=== PATIENT | male | born 1965 | race Caucasian/White ===

== ENCOUNTER 2017-05-11 08:55 | Inpatient (IN) | payer MEDICAID ==
--- NOTE | 2017-05-11 09:11 | ED Physician Chart ---
Chief Complaint/HPI - Patient Information Date Seen:: 05/11/17 Time Seen:: 09:06 Chief Complaint:: sob History of Present Illness:: pt says onset sob last nt. no cp. has some abd bloating no fever. 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 no leg pains or edema. was in [facility] 2 days ago for similar sx. says he is compliant w meds but also is confused about freq med changes. he has known hx of afib, htn and chf. no hx DM or AK or cva. he was recent admit at [facility] and says was advised to get GB sx but in [facility] they did work up and disagreed w leilani sx advice. he does not know his current meds but brought a bag (contains toprol 50 bid and no warfarin nor digoxin in bag) pt when asked, says he is not regularly on narcotic medication. 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 Allergies:: Allergies Allergy/AdvReac Type Severity Reaction Status Date / Time No Known Allergies Allergy Verified 05/11/17 09:02 Vitals:: Vital Signs - 8 hr 05/11/17 08:55 Temp 97.9 F HR 150 RR 18 BP 116/96 O2 Sat % 100 Historian:: Patient Review of Systems - Review of Systems General/Constitutional: No fever, No chills, No weight loss, No weakness, No diaphoresis, No edema, No loss of appetite Skin: No skin lesions, No rash, No bruising Head: No headache, No light-headedness Eyes: No loss of vision, No pain, No diplopia ENT: No earache, No nasal drainage, No sore throat, No tinnitus Neck: No neck pain, No swelling, No thyromegaly, No stiffness, No mass noted Cardio Vascular: No chest pain, No palpitations, No PND, No orthopnea, No edema Pulmonary: No SOB, No cough, No sputum, No wheezing GI: No nausea, No vomiting, No diarrhea, No pain, No melena, No hematochezia, No constipation, No hematemesis G/U: No dysuria, No frequency, No hematuria Musculoskeletal: No bone or joint pain, No back pain, No muscle pain Endocrine: No polyuria, No polydipsia Psychiatric: No prior psych history, No depression, No anxiety, No suicidal ideation Hematopoietic: No bruising, No lymphadenopathy Allergic/Immuno: No urticaria, No angioedema Neurological: No syncope, No focal symptoms, No weakness, No paresthesia, No headache, No seizure, No dizziness, No confusion, No vertigo Past Medical History - Past Medical History Past Medical History: HTN, CHF, Other (a fib) Social History: Non Smoker Medication: Reviewed Family Medical History - Family Member Grandmother Hx Family Cancer: Yes Physical Exam - Physical Examination General/Constitutional: Awake, Well-developed, well-nourished, Alert, No distress, GCS 15, Non-toxic appearing, Ambulatory Other Gen/Cons comments:: alert and not seemingly worried. speaks full sentences w nonpressured speech. lungs are clear. no edema. mod obese. Head: Atraumatic Eyes: Lids, conjuctiva normal, PERRL, EOMI Skin: Nl inspection, No rash, No skin lesions, No ecchymosis, Well hydrated, No lymphadenopathy ENMT: External ears, nose nl, Nasal exam nl, Lips, teeth, gums nl Neck: Nontender, Full ROM w/o pain, No JVD, No nuchal rigidity, No bruit, No mass, No stridor Respiratory: Nl effort/Exclusion, Clear to Auscultation, No Wheeze/Rhonchi/Rales Cardio Vascular: RRR, No murmur, gallop, rubs, NL S1 S2 GI: No tenderness/rebounding/guarding, No organomegaly, No hernia, Normal BS's, Nondistended, No mass/bruits, No McBurney tenderness Other GI comments:: vague tndr nonfocally. pos nabs. : No CVA tenderness Extremities: No tenderness or effusion, Full ROM, normal strength in all extremities, No edema, Normal digits & nails Neuro/Psych: Alert/oriented, DTR's symmetric, Normal sensory exam, Normal motor strength, Judgement/insight normal, Mood normal, Normal gait, No focal deficits Misc: normal gait, Normal back, No paraspinal tenderness Labs/Radiology/EKG Results - Lab Results Results: Laboratory Tests 05/11/17 05/11/17 05/11/17 09:27 09:27 09:27 WBC 6.8 RBC 4.47 Hgb 13.4 Hct 40.3 MCV 90.2 MCH 29.9 MCHC Differential 33.2 RDW 16.4 Plt Count 207 MPV 8.8 Neutrophils % 61.4 Lymphocytes % 29.1 Monocytes % 8.2 Eosinophils % 1.2 Basophils % 0.1 PT INR PTT (Actin FS) Sodium 135 L Potassium 3.6 Chloride 108 H Carbon Dioxide 22.1 Anion Gap 8.5 BUN 24 Creatinine 0.9 Est GFR ( Amer) > 60.0 Est GFR (Non-Af Amer) > 60.0 BUN/Creatinine Ratio 26.7 Glucose 119 H Whole Bld Lactic Acid Calcium 8.4 L Total Bilirubin 1.3 H AST 123 H ALT 240 H Alkaline Phosphatase 84 Troponin I 0.03 B-Natriuretic Peptide Total Protein 6.5 Albumin 3.1 L Globulin 3.4 Albumin/Globulin Ratio 0.9 L Lipase Digoxin Urine Opiates Screen Urine Methadone Screen Ur Barbiturates Screen Ur Tricyclics Screen Ur Phencyclidine Scrn Amphetamines Screen U Methamphetamines Scrn U Benzodiazepines Scrn U Cocaine Metab Screen U Cannabinoids Screen 05/11/17 05/11/17 05/11/17 09:27 09:27 09:27 WBC RBC Hgb Hct MCV MCH MCHC Differential RDW Plt Count MPV Neutrophils % Lymphocytes % Monocytes % Eosinophils % Basophils % PT 12.2 H INR 1.16 PTT (Actin FS) 28.1 Sodium Potassium Chloride Carbon Dioxide Anion Gap BUN Creatinine Est GFR ( Amer) Est GFR (Non-Af Amer) BUN/Creatinine Ratio Glucose Whole Bld Lactic Acid Calcium Total Bilirubin AST ALT Alkaline Phosphatase Troponin I B-Natriuretic Peptide 927.0 H Total Protein Albumin Globulin Albumin/Globulin Ratio Lipase Digoxin < 0.2 L Urine Opiates Screen Urine Methadone Screen Ur Barbiturates Screen Ur Tricyclics Screen Ur Phencyclidine Scrn Amphetamines Screen U Methamphetamines Scrn U Benzodiazepines Scrn U Cocaine Metab Screen U Cannabinoids Screen 05/11/17 05/11/17 05/11/17 09:27 10:00 12:50 WBC RBC Hgb Hct MCV MCH MCHC Differential RDW Plt Count MPV Neutrophils % Lymphocytes % Monocytes % Eosinophils % Basophils % PT INR PTT (Actin FS) Sodium Potassium Chloride Carbon Dioxide Anion Gap BUN Creatinine Est GFR ( Amer) Est GFR (Non-Af Amer) BUN/Creatinine Ratio Glucose Whole Bld Lactic Acid 4.17 H* Calcium Total Bilirubin AST ALT Alkaline Phosphatase Troponin I B-Natriuretic Peptide Total Protein Albumin Globulin Albumin/Globulin Ratio Lipase 88 H Digoxin Urine Opiates Screen POSITIVE H Urine Methadone Screen NEGATIVE Ur Barbiturates Screen NEGATIVE Ur Tricyclics Screen NEGATIVE Ur Phencyclidine Scrn NEGATIVE Amphetamines Screen NEGATIVE U Methamphetamines Scrn NEGATIVE U Benzodiazepines Scrn NEGATIVE U Cocaine Metab Screen NEGATIVE U Cannabinoids Screen POSITIVE H - Radiology Results Results: ct abd/p- cmegally, distended edematous GB w thick gb wall. cholecysteitis cannot be excluded bilat perinephric stranding suggests pyelonephritis small amt retro peritoneal adenopathy lrg fecal content - EKG Interpretations EKG Time:: 09:15 Rate & Rhythm: atrial tach regular appearing rate 150 Keyes: -1 Intervals: 582 qtc Comments:: rapid arrythmia..suspect a fib by known hx of same.. Assessment - Assessment Critical Care Time: 100 Excludes all billable procedures: Yes This condition life threatening/high prob of deterioration: Yes ED Septic Shock - . Is Septic Shock (SBP<90, OR Lactate>4 mmol\L) present?: No - <6hrs of presentation: Vital Signs: Vital Signs - 8 hr //17 08:55 Temp 97.9 F HR 150 RR 18 BP 116/96 O2 Sat % 100 Reassessment (Disposition) - Reassessment Reassessment:: 12;10 pm informed buy staff that pt is requesting strong pain meds. he has had his ct complete and is just now seen by me walking to BR by self w steadfy gait 1;29p - case dw dr rm ...will admit for cardiac obs and gb eval..may need gb sx. hrt rate has now stabilized/normalized. 1;30 US tech reports exam very limited bc pt c/o pain.. pt requests stronger pain med ..says he is ok w narcotic being given. Reassessment Condition:: Improved - Diagnosis Diagnosis:: 1 a fib rvr (rate 150) improved w medical tx in ED 2 abdominal pain w edematous GB on CT abd and high lft's LIKELY acute cholecysteitis - Patient Disposition Admitted to:: Telemetry Condition at Disposition:: Improved
[2017-05-11] MEDS ORDERED: Metoprolol tartrate 1 mg/ml 5mL Amp IV STA ×2 (09:15→09:43)
[2017-05-11] MEDS ORDERED: Metoprolol tartrate 1 mg/ml 5mL Amp IV ONE ×2 (09:19→09:47)
[2017-05-11] MEDS ORDERED: Sodium Chloride 0.9% 250 ML IV ONE (09:26)
[2017-05-11 09:33] LABS: % BASOPHILS 0.1 % (0.0-2.0); % EOSINOPHILS 1.2 % (0.0-5.0); % LYMPHOCYTES 29.1 % (20.0-50.0); % MONOCYTES 8.2 % (2.0-10.0); % NEUTROPHILS 61.4 % (40.0-80.0); HEMATOCRIT 40.3 % (39.0-49.0); HEMOGLOBIN 13.4 gm/dL (13.2-17.3); MEAN CELL VOLUME 90.2 fl (80-99); MEAN CORPUSCULAR HEMOGLOBIN 29.9 pg (26.0-30.0); MEAN CORPUSCULAR HGB CONC 33.2 pg (28.0-36.0); MEAN PLATELET VOLUME 8.8 fl; NEUTROPHILE ABSOLUTE 4.1 Th/cmm (1.8-8.0); PLATELET COUNT 207 Th/cmm (150-400); RED BLOOD COUNT 4.47 Mil/cmm (4.30-5.70); RED CELL DISTRIBUTION WIDTH 16.4 % (11.5-20.0); WHITE BLOOD COUNT 6.8 Th/cmm (4.8-10.8)
[2017-05-11 09:45] LABS: INR 1.16 (0.5-1.4); PROTHROMBIN TIME (TEST) 12.2 SECONDS (9.5-11.5)
[2017-05-11 09:53] LABS: ALB/GLOB RATIO 0.9 (1.0-1.8); ALKALINE PHOSPHATASE 84 U/L (34-104); ANION GAP 8.5 (7.0-16.0); BILIRUBIN,TOTAL 1.3 mg/dL (0.3-1.0); BUN - UREA NITROGEN 24 mg/dL (7-25); BUN/CREATININE RATIO 26.7; CALCIUM SERUM 8.4 mg/dL (8.6-10.3); CARBON DIOXIDE 22.1 mEq/L (21.0-31.0); CHLORIDE 108 mEq/L (98-107); CREATININE - SERUM 0.9 mg/dL (0.7-1.3); GLUCOSE 119 mg/dL (70-105); POTASSIUM SERUM 3.6 mEq/L (3.5-5.1); SGOT 123 U/L (13-39); SGPT/ALT 240 U/L (7-52); SODIUM SERUM 135 mEq/L (136-145)
[2017-05-11 10:22] LABS: AMPHETAMINE URINE NEGATIVE (NEGATIVE); BARBITURATES URINE NEGATIVE (NEGATIVE); METHADONE URINE NEGATIVE (NEGATIVE)
--- NOTE | 2017-05-11 12:17 | Diagnostic Imaging Report ---
Exam: CT examination abdomen pelvis HISTORY: Abdominal pain Total DLP equals 575 CTDI equals 11.5 Findings: Multiple contiguous thin section abdomen pelvis obtained from lower thorax to pubic symphysis without the administration of oral or intravenous contrast material therefore the study is somewhat limited. The study demonstrates a normal aeration of lung parenchyma the bases. The heart is enlarged The liver and spleen are normal. The visualized pancreas intact. The gallbladder is distended with thickening of gallbladder wall, cholecystitis cannot be excluded clinical correlation HIDA scan or ultrasound examination might be helpful. The kidneys demonstrate no evidence of obstructive uropathy or nephrolithiasis. No free fluid is noted. Large amount of fecal content is noted in the right colon. The appendix is intact. The urinary bladder is normal. Bony structures demonstrate no evidence for lytic or blastic changes. There is evidence for mild the perirenal induration inflammatory changes cannot be excluded bilaterally pyelonephritis should be consideration. Small adenopathy is noted in the retroperitoneal area with lymph nodes less than 1 cm. IMPRESSION: 1. Cardiomegaly 2. Distended edematous gallbladder with thickening of gallbladder wall cholecystitis cannot be excluded. Ultrasound examination of HIDA scan might be helpful 3. Perinephric inflammatory changes bilaterally suggestive of pyelonephritis clinical correlation recommended. 4. Small amount of the tibioperoneal adenopathy with less than 1 cm lymph nodes identified 5. Large amount of fecal content in the right colon.
[2017-05-11] MEDS ORDERED: Piperacillin Sodium/Tazobact 3.375 gm Vial IV ONE (12:44)
[2017-05-11] MEDS ORDERED: Morphine Sulfate 4 mg/mL 1mL Syr IVP STA (13:32)
[2017-05-11 13:35] LABS: URINE COLOR YELLOW
[2017-05-11 13:36] LABS: URINE BILIRUBIN NEGATIVE (NEGATIVE); URINE BLOOD NEGATIVE (NEGATIVE); URINE GLUCOSE (UA) NEGATIVE (NEGATIVE); URINE KETONE NEGATIVE (NEGATIVE); URINE PROTEIN 30 mg/dL (NEGATIVE)
[2017-05-11 13:47] LABS: URINE RBC NONE SEEN /hpf (0-5); URINE WBC 0-2 /hpf (0-5)
[2017-05-11 13:48] LABS: URINE BACTERIA MANY /hpf (NONE SEEN); URINE EPITHELIAL CELLS OCCASIONAL /lpf (FEW)
[2017-05-11 13:49] LABS: URINE AMORPHOUS SEDIMENT MANY URATES (NONE SEEN)
--- NOTE | 2017-05-11 15:00 | Diagnostic Imaging Report ---
Exam: Limited ultrasound summation of gallbladder HISTORY: Gallbladder stones. Findings: Limited ultrasound examination of gallbladder was performed multiple planes. The study demonstrates contracted gallbladder with thickening of the wall up to 1.4 cm. This might represent edema gallbladder wall versus nonfasting state. The common bile duct measures 4 mm. The study is limited due to patient being uncooperative and pain. IMPRESSION: Contracted gallbladder with thickening of gallbladder wall up to 1.4 cm, no evidence of cholelithiasis. Gallbladder wall inflammatory changes, cholecystitis cannot be excluded clinical correlation and HIDA scan might be helpful.
--- NOTE | 2017-05-11 15:35 | General Progress Note ---
Subjective - Review of Systems Service Date: 05/11/17 Events since last encounter: claims abdominal pain for 1 week. has had visits to 2 other hospitals IFT high, US contracted GB, drug screen positive Plan HIDA scan Objective - Results Result Diagrams: 05/11/17 09:27 05/11/17 09: Recent Labs: Laboratory Last Values WBC 6.8 Th/cmm (4.8-10.8) 05/11/17 09: RBC 4.47 Mil/cmm (4.30-5.70) 05/11/17 09: Hgb 13.4 gm/dL (13.2-17.3) 05/11/17: Hct 40.3 % (39.0-49.0) 05/11/17: MCV 90.2 fl (80-99) 05/11/17 09: MCH 29.9 pg (26.0-30.0) 05/11/17: MCHC Differential 33.2 pg (28.0-36.0) 05/11/17: RDW 16.4 % (11.5-20.0) 05/11/17: Plt Count 207 Th/cmm (150-400) 05/11/17 09: MPV 8.8 fl 05/11/17 09: Neutrophils % 61.4 % (40.0-80.0) 05/11/17: Lymphocytes % 29.1 % (20.0-50.0) 05/11/17: Monocytes % 8.2 % (2.0-10.0) 05/11/17: Eosinophils % 1.2 % (0.0-5.0) 05/11/17: Basophils % 0.1 % (0.0-2.0) 05/11/17: PT 12.2 SECONDS (9.5-11.5) H 05/11/17: INR 1.16 (0.5-1.4) 05/11/17 09: PTT (Actin FS) 28.1 SECONDS (26.0-38.0) 05/11/17 09: Sodium 135 mEq/L (136-145) L 05/11/17: Potassium 3.6 mEq/L (3.5-5.1) 05/11/17 09:27 Chloride 108 mEq/L (98-107) H 05/11/17 09:27 Carbon Dioxide 22.1 mEq/L (21.0-31.0) 05/11/17 09:27 Anion Gap 8.5 (7.0-16.0) 05/11/17 09:27 BUN 24 mg/dL (7-25) 05/11/17 09:27 Creatinine 0.9 mg/dL (0.7-1.3) 05/11/17 09:27 Est GFR ( Amer) > 60.0 ml/min (>90) 05/11/17 09:27 Est GFR (Non-Af Amer) > 60.0 ml/min 05/11/17 09:27 BUN/Creatinine Ratio 26.7 05/11/17 09:27 Glucose 119 mg/dL (70-105) H 05/11/17 09:27 Whole Bld Lactic Acid 3.26 mmol/L (0.60-1.99) H* 05/11/17 14:05 Calcium 8.4 mg/dL (8.6-10.3) L 05/11/17 09:27 Total Bilirubin 1.3 mg/dL (0.3-1.0) H 05/11/17 09:27 AST 123 U/L (13-39) H 05/11/17 09:27 ALT 240 U/L (7-52) H 05/11/17 09:27 Alkaline Phosphatase 84 U/L (34-104) 05/11/17 09:27 Troponin I 0.03 ng/mL (0.01-0.05) 05/11/17 09:27 B-Natriuretic Peptide 927.0 pg/mL (5.0-100.0) H 05/11/17 09:27 Total Protein 6.5 gm/dL (6.0-8.3) 05/11/17 09:27 Albumin 3.1 gm/dL (4.2-5.5) L 05/11/17 09:27 Globulin 3.4 gm/dL 05/11/17 09:27 Albumin/Globulin Ratio 0.9 (1.0-1.8) L 05/11/17 09:27 Lipase 88 U/L (11-82) H 05/11/17 09:27 Urine Source CLEAN C 05/11/17 10:00 Urine Color YELLOW 05/11/17 10:00 Urine Clarity CLOUDY (CLEAR) 05/11/17 10:00 Urine pH 6.0 05/11/17 10:00 Ur Specific [place] 1.020 (1.005-1.030) 05/11/17 10:00 Urine Protein 30 mg/dL (NEGATIVE) H 05/11/17 10:00 Urine Glucose (UA) NEGATIVE mg/dL (NEGATIVE) 05/11/17 10:00 Urine Ketones NEGATIVE mg/dL (NEGATIVE) 05/11/17 10:00 Urine Blood NEGATIVE (NEGATIVE) 05/11/17 10:00 Urine Nitrate NEGATIVE (NEGATIVE) 05/11/17 10:00 Urine Bilirubin NEGATIVE (NEGATIVE) 05/11/17 10:00 Urine Urobilinogen 2.0 E.U./dL (0.2 - 1.0) 05/11/17 10:00 Ur Leukocyte Esterase NEGATIVE (NEGATIVE) 05/11/17 10:00 Urine RBC NONE SEEN /hpf (0-5) 05/11/17 10:00 Urine WBC 0-2 /hpf (0-5) 05/11/17 10:00 Ur Epithelial Cells OCCASIONAL /lpf (FEW) 05/11/17 10:00 Amorphous Sediment MANY URATES (NONE SEEN) 05/11/17 10:00 Urine Bacteria MANY /hpf (NONE SEEN) 05/11/17 10:00 Digoxin < 0.2 ng/ml (0.8-2.0) L 05/11/17 09:27 Urine Opiates Screen POSITIVE (NEGATIVE) H 05/11/17 10:00 Urine Methadone Screen NEGATIVE (NEGATIVE) 05/11/17 10:00 Ur Barbiturates Screen NEGATIVE (NEGATIVE) 05/11/17 10:00 Ur Tricyclics Screen NEGATIVE (NEGATIVE) 05/11/17 10:00 Ur Phencyclidine Scrn NEGATIVE (NEGATIVE) 05/11/17 10:00 Amphetamines Screen NEGATIVE (NEGATIVE) 05/11/17 10:00 U Methamphetamines Scrn NEGATIVE (NEGATIVE) 05/11/17 10:00 U Benzodiazepines Scrn NEGATIVE (NEGATIVE) 05/11/17 10:00 U Cocaine Metab Screen NEGATIVE (NEGATIVE) 05/11/17 10:00 U Cannabinoids Screen POSITIVE (NEGATIVE) H 05/11/17 10:00 - Physical Exam Vitals and I&O: Vital Signs Temp 97.9 F 05/11/17 08:55 Pulse 79 05/11/17 12:25 Resp 19 05/11/17 12:25 BP 99/75 05/11/17 12:25 Pulse Ox 100 05/11/17 12:25 Active Medications: Current Medications Enoxaparin Sodium (Lovenox) 40 mg SUBQ DAILY MICHELLE Stop: 07/11/17 08:59 Hydromorphone HCl (Dilaudid) 1 mg IVP Q4H PRN PRN Reason: pain Stop: 07/10/17 14:41 Potassium Chloride/Dextrose/Sod Cl (D5-0.45ns W/20 Meq Kcl) 1,000 mls @ 100 mls /hr IV .Q10H MICHELLE Stop: 07/10/17 14:41 Metronidazole (Flagyl) 500 mg in 100 mls @ 100 mls/hr IV Q8HR MICHELLE Stop: 07/10/17 20:59 Piperacillin Sod/Tazobactam (Sod 3.375 gm/ Sodium Chloride) 50 mls @ 100 mls/ hr IV Q6H MICHELLE Stop: 07/10/17 21:59 Metoprolol Tartrate (Lopressor) 50 mg PO BID MICHELLE Stop: 07/10/17 16:59 Ondansetron HCl (Zofran) 4 mg IV Q4H PRN PRN Reason: nausea and vomiting Stop: 07/10/17 14:41 Pantoprazole Sodium (Protonix) 40 mg IVP DAILY MICHELLE Stop: 07/11/17 08:59
[2017-05-11] MEDS: D5-0.45NS w/20 mEq KCL 1,000 ML IV SCH (16:20)
[2017-05-11] MEDS: HYDROmorphone 1 mg/mL 1mL Syr IVP PRN (19:29)
[2017-05-11] MEDS: metroNIDAZOLE 500mg/NS 100mL 500 MG/100 ML BAG IV SCH (21:11)
--- NOTE | 2017-05-11 21:11 | History and Physical ---
History of Present Illness - HPI Chief Complaint: ACUTE ABDOMINAL PAIN FOR FEW [place] DURATION. HPI: THE PATIENT IS 51 YEAR OLD WITH OMH SIGNIFICANT FOR HTN,CHF POSSIBLE DRUG DEPENDENCY PRESENTED TO ER WITH ABDOMINAL PAIN FOR FEW DAYS DURATION. 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 Pertinent Hx GI: Report: No Pertinent Hx Psych: Report: No Pertinent Hx Musculoskeletal: Report: No Pertinent Hx Rheumatologic: Report: No pertinent Hx Infectious Disease: Report: No Pertinent Hx Renal/: Report: No Pertinent Hx Endocrine: Report: No Pertinent Hx Dermatology: Report: No Pertinent Hx - Past Surgical History Past Surgical History: No pertinent Hx Family Medical History - Family Member Grandmother Hx Family Cancer: Yes Social History Smoke: Quit Alcohol: None Drugs: Marijuana Lives: With Family Domestic Violence: Negative - Medications Home Medications: Home Medication Medication Instructions Recorded Type Enalapril Maleate 20 mg PO DAILY 05/11/17 History Metoprolol Succinate [Toprol XL] 50 mg PO BID 05/11/17 History Ondansetron [Zofran ODT] 4 mg PO Q6H PRN 05/11/17 History Pantoprazole [Protonix] 40 mg PO DAILY 05/11/17 History Rivaroxaban [Xarelto] 20 mg PO HS 05/11/17 History Spironolactone 25 mg PO DAILY 05/11/17 History - Allergies Allergies/Adverse Reactions: Allergies Allergy/AdvReac Type Severity Reaction Status Date / Time No Known Allergies Allergy Verified 05/11/17 09:02 Review of Systems - Review of Systems Constitutional: Denies: No Significant, Fever, Sweats, Weakness Eyes: Denies: No Significant, Pain, Conjunctivae Inflammation, Eyelid Inflammation ENT: Denies: No Significant, Ear Pain, Ear Discharge, Nose Discharge, Nose Congestion, Mouth Pain Respiratory: Denies: No Significant, Cough, Hemoptysis, SOB with Excertion, Pleuritic Pain Cardiovascular: Report: Other (CHF) Gastrointestinal: Report: Other (ABDOMINAL PAIN) Musculoskeletal: Report: No Significant Skin: Report: No Significant Neurological: Report: No Significant Physical Exam - Physical Exam HEENT: Report: Ears Nose Throat within normal limits Neck: Report: Within normal limits Cardiovascular Systems: Report: Regular, Rate and Rhythm, no murmurs noted Respiratory: Report: Breath Sounds are within normal limits, Clear to Auscultation of lung avery Abdomen: Report: Tender to palpation, Bowel Sounds are within normal limits Back: Report: Inspection of back is within normal limits. Extremities: Report: Non-tender to palpation. - Lab Results All Lab Results last 24 hours: Laboratory Last Values WBC 6.8 Th/cmm (4.8-10.8) 05/11/17 09:27 RBC 4.47 Mil/cmm (4.30-5.70) 05/11/17 09:27 Hgb 13.4 gm/dL (13.2-17.3) 05/11/17 09: Hct 40.3 % (39.0-49.0) 05/11/17 09: MCV 90.2 fl (80-99) 05/11/17 09:27 MCH 29.9 pg (26.0-30.0) 05/11/17 09: MCHC Differential 33.2 pg (28.0-36.0) 05/11/17 09: RDW 16.4 % (11.5-20.0) 05/11/17 09: Plt Count 207 Th/cmm (150-400) 05/11/17 09:27 MPV 8.8 fl 05/11/17 09:27 Neutrophils % 61.4 % (40.0-80.0) 05/11/17 09:27 Lymphocytes % 29.1 % (20.0-50.0) 05/11/17 09:27 Monocytes % 8.2 % (2.0-10.0) 05/11/17 09:27 Eosinophils % 1.2 % (0.0-5.0) 05/11/17 09:27 Basophils % 0.1 % (0.0-2.0) 05/11/17 09:27 PT 12.2 SECONDS (9.5-11.5) H 05/11/17 09:27 INR 1.16 (0.5-1.4) 05/11/17 09:27 PTT (Actin FS) 28.1 SECONDS (26.0-38.0) 05/11/17 09:27 Sodium 135 mEq/L (136-145) L 05/11/17 09:27 Potassium 3.6 mEq/L (3.5-5.1) 05/11/17 09:27 Chloride 108 mEq/L (98-107) H 05/11/17 09:27 Carbon Dioxide 22.1 mEq/L (21.0-31.0) 05/11/17 09:27 Anion Gap 8.5 (7.0-16.0) 05/11/17 09:27 BUN 24 mg/dL (7-25) 05/11/17 09:27 Creatinine 0.9 mg/dL (0.7-1.3) 05/11/17 09:27 Est GFR ( Amer) > 60.0 ml/min (>90) 05/11/17 09:27 Est GFR (Non-Af Amer) > 60.0 ml/min 05/11/17 09:27 BUN/Creatinine Ratio 26.7 05/11/17 09:27 Glucose 119 mg/dL (70-105) H 05/11/17 09:27 Whole Bld Lactic Acid 3.26 mmol/L (0.60-1.99) H* 05/11/17 14:05 Calcium 8.4 mg/dL (8.6-10.3) L 05/11/17 09:27 Total Bilirubin 1.3 mg/dL (0.3-1.0) H 05/11/17 09:27 AST 123 U/L (13-39) H 05/11/17 09:27 ALT 240 U/L (7-52) H 05/11/17 09:27 Alkaline Phosphatase 84 U/L (34-104) 05/11/17 09:27 Troponin I 0.03 ng/mL (0.01-0.05) 05/11/17 09:27 B-Natriuretic Peptide 927.0 pg/mL (5.0-100.0) H 05/11/17 09:27 Total Protein 6.5 gm/dL (6.0-8.3) 05/11/17 09:27 Albumin 3.1 gm/dL (4.2-5.5) L 05/11/17 09:27 Globulin 3.4 gm/dL 05/11/17 09:27 Albumin/Globulin Ratio 0.9 (1.0-1.8) L 05/11/17 09:27 Lipase 88 U/L (11-82) H 05/11/17 09:27 Urine Source CLEAN C 05/11/17 10:00 Urine Color YELLOW 05/11/17 10:00 Urine Clarity CLOUDY (CLEAR) 05/11/17 10:00 Urine pH 6.0 05/11/17 10:00 Ur Specific [place] 1.020 (1.005-1.030) 05/11/17 10:00 Urine Protein 30 mg/dL (NEGATIVE) H 05/11/17 10:00 Urine Glucose (UA) NEGATIVE mg/dL (NEGATIVE) 05/11/17 10:00 Urine Ketones NEGATIVE mg/dL (NEGATIVE) 05/11/17 10:00 Urine Blood NEGATIVE (NEGATIVE) 05/11/17 10:00 Urine Nitrate NEGATIVE (NEGATIVE) 05/11/17 10:00 Urine Bilirubin NEGATIVE (NEGATIVE) 05/11/17 10:00 Urine Urobilinogen 2.0 E.U./dL (0.2 - 1.0) 05/11/17 10:00 Ur Leukocyte Esterase NEGATIVE (NEGATIVE) 05/11/17 10:00 Urine RBC NONE SEEN /hpf (0-5) 05/11/17 10:00 Urine WBC 0-2 /hpf (0-5) 05/11/17 10:00 Ur Epithelial Cells OCCASIONAL /lpf (FEW) 05/11/17 10:00 Amorphous Sediment MANY URATES (NONE SEEN) 05/11/17 10:00 Urine Bacteria MANY /hpf (NONE SEEN) 05/11/17 10:00 Digoxin < 0.2 ng/ml (0.8-2.0) L 05/11/17 09:27 Urine Opiates Screen POSITIVE (NEGATIVE) H 05/11/17 10:00 Urine Methadone Screen NEGATIVE (NEGATIVE) 05/11/17 10:00 Ur Barbiturates Screen NEGATIVE (NEGATIVE) 05/11/17 10:00 Ur Tricyclics Screen NEGATIVE (NEGATIVE) 05/11/17 10:00 Ur Phencyclidine Scrn NEGATIVE (NEGATIVE) 05/11/17 10:00 Amphetamines Screen NEGATIVE (NEGATIVE) 05/11/17 10:00 U Methamphetamines Scrn NEGATIVE (NEGATIVE) 05/11/17 10:00 U Benzodiazepines Scrn NEGATIVE (NEGATIVE) 05/11/17 10:00 U Cocaine Metab Screen NEGATIVE (NEGATIVE) 05/11/17 10:00 U Cannabinoids Screen POSITIVE (NEGATIVE) H 05/11/17 10:00 Laboratory Results - last 24 hr 05/11/17 14:05 Whole Bld Lactic Acid 3.26 H* - Assessment Assessment: 1.CHOLELITHIASIS. 2.POSSIBLE ACUTE ON CHRONIC CHOLECESTITIS. 3.CHF - Plan Plan: ADMIT TO TELEMETRY.IV FLUID,IV ANTIBIOTIC.CLEAR LIQUID DIET.CONSULT .CONSULT .
--- NOTE | 2017-05-12 00:42 | Admit Criteria Form ---
Admit Criteria Forms - Admit Criteria Diagnosis: ABDOMINAL PAIN Clinical Indications for Admission to Inpatient Care (Place 'X' for any and all applicable criteria): Admission is indicated for ANY ONE of the following(1)(2)(3)(4)(5): [X ]I. Inpatient admission required rather than observation care (Also use Abdominal Pain: Observation Care, as appropriate) because of ANY ONE of the following: [ ]a) Severe pain requiring acute inpatient management [X ]b) Identification of etiology/finding that requires inpatient care (eg, aortic dissection, free air) [ ]c) Absent bowel sounds with complete ileus(6) [ ]d) Suspected toxic megacolon [ ]e) Severe electrolyte abnormalities requiring inpatient care [ ]f) High fever or infection requiring inpatient admission as indicated by ANY ONE of following(7)(8): [ ] i) Appropriate outpatient or observational care antimicrobial treatment unavailable, not effective, or not feasible [ ] ii) Documented bacteremia [ ] iii) Temperature > 104.9 degrees F (oral) [ ] iv) T >103.1 F (oral) or < 96.8 F(rectal) that does not respond to all emergency treatment measures [ ]g) Signs of intestinal obstruction [B] [X ]h) Hemodynamic instability [ ]i) IV fluid to replace significant ongoing losses (greater than 3 L/m2 per day) (12)(13) [ ]j) Percutaneous or open drainage (eg, abscess, biliary tract ) procedures [ ]k) Parenteral nutrition regimen that must be implemented on inpatient basis [ ]l) Other condition,treatment or monitoring requiring inpatient admission. [ ]II. Peritoneal signs present [ ]III. Surgery needed that cannot be performed on an ambulatory basis. [ ]IV. Evaluation requires patient to not eat or drink for extended period ( eg, more than 24 hours). [ ]V. Contraindications and/or Inappropriate clinical situations for Observational Care in patients with abdominal pain, when ANY ONE of the following is required: [ ]a) Thorough evaluation is required to prevent catastrophic events due to delays in diagnosing (e.g.Mesenteric ischemia) 1,3 [ ]b) Patient with severe pathology or with chronic symptoms unlikely to improve in the ED stay (3) [ ]. General contraindications and/or Inappropriate clinical situations for Observational Care in patients with abdominal pain, when ANY ONE of the following is required: [ ]a) Prediction of prolongation of LOS based on ANY ONE of the following may be considered as a contraindication for observational care 2, 3, 4, 5, 6, 7, 8, 9, 10, 11 [ ]i) Age > 65 yrs. [ ]ii) Patient arriving by ambulance [ ]iii) Patient with high acuity [ ]iv) Patient requiring vital sign monitoring [ ]v) Patient on IV medication [ ]b) Systolic blood pressures 180mmHg 3,12 [ ]c) Patient with altered mental status including delirium and other alteration of consciousness, (3) [ ]d) Patient whose discharge disposition will be to a residential home or rehabilitation home should not be managed in Emergency Department Observation Unit. CMS rule requires 3 days hospital stay before such placement.3,13 [ ]e) Patient with failure to thrive due to broad array of etiologies 3,16,17 [ ]f) Inability to ambulate 3,14 Extended stay beyond goal length of stay may be needed for(2)(3): [ ]a) Persistent abdominal pain with suspected intra-abdominal process [ ]b) Diagnosed condition requiring continued stay (e.g., pancreatitis, complicated diverticulitis) [ ]c) Surgery (e.g., colectomy) The original [employer] content created by [employer] has been revised. The portions of the content which have been revised are identified through the use of italic text or in bold, and [facility] has neither reviewed nor approved the modified material.All other unmodified content is copyright [employer]. Please see references footnoted in the original [facility] edition 2016 Admit Criteria Met?: Yes
[2017-05-12] MEDS: metroNIDAZOLE 500mg/NS 100mL 500 MG/100 ML BAG IV SCH ×3 (06:27→21:28)
[2017-05-12] MEDS: HYDROmorphone 1 mg/mL 1mL Syr IVP PRN ×2 (08:41→15:04)
[2017-05-12] MEDS: Pantoprazole 40 mg EC Tab PO SCH (08:41)
[2017-05-12] MEDS ORDERED: Enoxaparin 40 mg/0.4 mL 0.4mL Syr SUBQ SCH (09:00)
--- NOTE | 2017-05-12 10:59 | Diagnostic Imaging Report ---
Portable chest x-ray HISTORY: Shortness of breath The heart is enlarged. No focal pulmonary processes. No hilar or mediastinal abnormalities. IMPRESSION: 1. Cardiomegaly 2. No acute focal pulmonary processes
--- NOTE | 2017-05-12 11:01 | Diagnostic Imaging Report ---
Radionuclide biliary scan (HIDA scan) HISTORY: Pain 5.1 mCi technetium labeled biliary age and and was used in the exam. There is normal hepatic uptake and clearance. There is excretion of nuclide into the common bile duct, gallbladder, and small bowel. IMPRESSION: Negative examination
--- NOTE | 2017-05-12 14:24 | Consultation ---
Consult Note - Consult Note Service Date: 05/12/17 Consult Note: PHYSICIAN Consultation Note: Date of Admission: 05/11/17 Purpose of Consultation: Shortness of breath abdominal pain Chief Complaint: Shortness of breath History of Present Illness: Patient NIYA RIZO was admitted to [facility] Telemetry with ACUTE CHOLECYSTIS /CHOLELITHIASIS. Past Medical History: Diagnoses OTHER PSYCHOACTIVE SUBSTANCE DEPENDENCE, UNCOMPLICATED (05/11/17) ESSENTIAL (PRIMARY) HYPERTENSION (05/11/17) UNSPECIFIED ATRIAL FIBRILLATION (05/11/17) HEART FAILURE, UNSPECIFIED (05/11/17) CALCULUS OF GB W ACUTE AND CHRONIC CHOLECYST W/O OBSTRUCTION (05/11/17) UNSPECIFIED ABDOMINAL PAIN (05/11/17) Allergies Allergy/AdvReac Type Severity Reaction Status Date / Time No Known Allergies Allergy Verified 05/11/17 09:02 Vital Signs Temp 96.6 F 05/12/17 09:40 Pulse 62 05/12/17 09:40 Resp 19 05/12/17 09:40 BP 112/75 05/12/17 09:40 Pulse Ox 99 05/12/17 09:40 Intake & Output 05/11/17 05/12/17 05/12/17 18:59 06:59 18:59 Intake Total 300 270 50 Balance 300 270 50 Weight (lbs) 97.069 kg 97.069 kg Intake: Intake, IV Amount 150 50 Piperacillin Sodium/ 50 50 Tazobact 3.375 gm In Sodium Chloride 0.9% 50 ml @ 100 mls/hr IV Q6H [facility] Rx#:[id number] metroNIDAZOLE 500mg/NS 100 100mL 500 mg In 100 ml @ 100 mls/hr IV Q8HR [facility] Rx #:[id number] Oral 300 120 Other: # Voids 1 3 Laboratory Results - last 24 hr 05/11/17 05/12/17 05/12/17 14:05 07:50 09:50 Whole Bld Lactic Acid 3.26 H* 5.87 H* 5.00 H* Home Medication Medication Instructions Recorded Type Enalapril Maleate 20 mg PO DAILY 05/11/17 History Metoprolol Succinate [Toprol XL] 50 mg PO BID 05/11/17 History Ondansetron [Zofran ODT] 4 mg PO Q6H PRN 05/11/17 History Pantoprazole [Protonix] 40 mg PO DAILY 05/11/17 History Rivaroxaban [Xarelto] 20 mg PO HS 05/11/17 History Spironolactone 25 mg PO DAILY 05/11/17 History Current Medications Generic Name Dose Route Start Last Admin Trade Name Freq PRN Reason Stop Dose Admin Enalapril Maleate 20 mg 05/12/17 09:00 05/12/17 08:41 Vasotec PO 07/11/17 08:59 20 mg DAILY [facility] Administration Enoxaparin Sodium 40 mg 05/12/17 09:00 05/12/17 09:11 Lovenox SUBQ 07/11/17 08:59 40 mg DAILY [facility] Administration Hydromorphone HCl 1 mg 05/11/17 14:42 05/12/17 08:41 Dilaudid IVP 07/10/17 14:41 1 mg Q4H PRN Administration pain Potassium Chloride/Dextrose/Sod Cl 1,000 mls @ 100 mls/hr 05/11/17 14:42 16:20 D5-0.45ns W/20 Meq Kcl IV 07/10/17 14:41 100 mls/hr .Q10H [facility] Administration Metronidazole 500 mg in 100 mls @ 100 mls/hr 05/11/17 21:00 05/12/17 06:27 Flagyl IV 07/10/17 20:59 100 mls/hr Q8HR [facility] Administration Piperacillin Sod/Tazobactam 50 mls @ 100 mls/hr 05/11/17 22:00 05/12/17 12:02 Sod 3.375 gm/ Sodium Chloride IV 07/10/17 21:59 100 mls/hr Q6H [facility] Administration Ketorolac Tromethamine 30 mg 05/11/17 16:07 05/11/17 16:18 Toradol IVP 07/10/17 16:06 30 mg Q6H PRN Administration Severe Pain Metoprolol Succinate 50 mg 05/12/17 09:00 05/12/17 08:41 Toprol Xl PO 07/11/17 08:59 50 mg BID [facility] Administration Metoprolol Tartrate 50 mg 05/11/17 17:00 05/11/17 17:43 Lopressor PO 07/10/17 16:59 Not Given BID [facility] Ondansetron HCl 4 mg 05/11/17 14:42 Zofran IV 07/10/17 14:41 Q4H PRN nausea and vomiting Pantoprazole Sodium 40 mg 05/12/17 09:00 05/12/17 08:41 Protonix PO 07/11/17 08:59 40 mg DAILY [facility] Administration Rivaroxaban 20 mg 05/12/17 21:00 Xarelto PO 07/11/17 20:59 HS MIC[facility]LE Spironolactone 25 mg 05/12/17 09:00 05/12/17 08:41 Aldactone PO 07/11/17 08:59 25 mg DAILY [facility] Administration Review of Systems: A 12 point ROS was reviewed with the pertinent positive and negatives noted in the HPI. Social History Smoking Status Never smoker Physical Exam: General: Occasional swelling of the legs HEENT: Normal Cardio: Short of breath and S1-S2 soft S3 Respiratory: Has OCCASIONAL rales occasional wheeze Abdominal: No organomegaly Genital/Urinary: Normal Extremities: Peripheral edema peripheral pulses difficult to palpate Neurological: Focal neurological deficit congestive heart failure systolic dysfunction acute on chronic Assessment: Congestive heart failure systolic dysfunction acute on chronic congestive heart failure cardiomyopathy drug-induced Cardiomyopathy opioad dependence Hypertension GERD Acute cholecystitis Plan: Signed, Roni Qureshi [id number]
--- NOTE | 2017-05-12 15:18 | Consultation ---
Consult Note - Consult Note Service Date: 05/11/17 Consult Note: PHYSICIAN Consultation Note: Date of Admission: 05/11/17 Purpose of Consultation: Chief Complaint: History of Present Illness: Patient NIYA RIZO was admitted to [facility] Telemetry with ACUTE CHOLECYSTIS /CHOLELITHIASIS. Past Medical History: Diagnoses OTHER PSYCHOACTIVE SUBSTANCE DEPENDENCE, UNCOMPLICATED (05/11/17) ESSENTIAL (PRIMARY) HYPERTENSION (05/11/17) UNSPECIFIED ATRIAL FIBRILLATION (05/11/17) HEART FAILURE, UNSPECIFIED (05/11/17) CALCULUS OF GB W ACUTE AND CHRONIC CHOLECYST W/O OBSTRUCTION (05/11/17) UNSPECIFIED ABDOMINAL PAIN (05/11/17) Allergies Allergy/AdvReac Type Severity Reaction Status Date / Time No Known Allergies Allergy Verified 05/11/17 09:02 Vital Signs Temp 96.6 F 05/12/17 09:40 Pulse 62 05/12/17 09:40 Resp 19 05/12/17 09:40 BP 112/75 05/12/17 09:40 Pulse Ox 99 05/12/17 09:40 Intake & Output 05/11/17 05/12/17 05/12/17 18:59 06:59 18:59 Intake Total 300 270 150 Balance 300 270 150 Weight (lbs) 97.069 kg 97.069 kg Intake: Intake, IV Amount 150 150 Piperacillin Sodium/ 50 50 Tazobact 3.375 gm In Sodium Chloride 0.9% 50 ml @ 100 mls/hr IV Q6H [facility] Rx#:[id number] metroNIDAZOLE 500mg/NS 100 100 100mL 500 mg In 100 ml @ 100 mls/hr IV Q8HR [facility] Rx #:[id number] Oral 300 120 Other: # Voids 1 3 Laboratory Results - last 24 hr 05/12/17 05/12/17 07:50 09:50 Whole Bld Lactic Acid 5.87 H* 5.00 H* Home Medication Medication Instructions Recorded Type Enalapril Maleate 20 mg PO DAILY 05/11/17 History Metoprolol Succinate [Toprol XL] 50 mg PO BID 05/11/17 History Ondansetron [Zofran ODT] 4 mg PO Q6H PRN 05/11/17 History Pantoprazole [Protonix] 40 mg PO DAILY 05/11/17 History Rivaroxaban [Xarelto] 20 mg PO HS 05/11/17 History Spironolactone 25 mg PO DAILY 05/11/17 History Current Medications Generic Name Dose Route Start Last Admin Trade Name Freq PRN Reason Stop Dose Admin Enalapril Maleate 20 mg 05/12/17 09:00 05/12/17 08:41 Vasotec PO 07/11/17 08:59 20 mg DAILY [facility] Administration Enoxaparin Sodium 40 mg 05/12/17 09:00 05/12/17 09:11 Lovenox SUBQ 07/11/17 08:59 40 mg DAILY [facility] Administration Hydromorphone HCl 1 mg 05/11/17 14:42 05/12/17 15:04 Dilaudid IVP 07/10/17 14:41 1 mg Q4H PRN Administration pain Potassium Chloride/Dextrose/Sod Cl 1,000 mls @ 100 mls/hr 05/11/17 14:42 16:20 D5-0.45ns W/20 Meq Kcl IV 07/10/17 14:41 100 mls/hr .Q10H [facility] Administration Metronidazole 500 mg in 100 mls @ 100 mls/hr 05/11/17 21:00 05/12/17 15:08 Flagyl IV 07/10/17 20:59 100 mls/hr Q8HR [facility] Administration Piperacillin Sod/Tazobactam 50 mls @ 100 mls/hr 05/11/17 22:00 05/12/17 12:02 Sod 3.375 gm/ Sodium Chloride IV 07/10/17 21:59 100 mls/hr Q6H [facility] Administration Ketorolac Tromethamine 30 mg 05/11/17 16:07 05/11/17 16:18 Toradol IVP 07/10/17 16:06 30 mg Q6H PRN Administration Severe Pain Metoprolol Succinate 50 mg 05/12/17 09:00 05/12/17 08:41 Toprol Xl PO 07/11/17 08:59 50 mg BID [facility] Administration Metoprolol Tartrate 50 mg 05/11/17 17:00 05/12/17 09:10 Lopressor PO 07/10/17 16:59 Not Given BID [facility] Ondansetron HCl 4 mg 05/11/17 14:42 Zofran IV 07/10/17 14:41 Q4H PRN nausea and vomiting Pantoprazole Sodium 40 mg 05/12/17 09:00 05/12/17 08:41 Protonix PO 07/11/17 08:59 40 mg DAILY [facility] Administration Rivaroxaban 20 mg 05/12/17 21:00 Xarelto PO 07/11/17 20:59 HS [facility] Spironolactone 25 mg 05/12/17 09:00 05/12/17 08:41 Aldactone PO 07/11/17 08:59 25 mg DAILY [facility] Administration Review of Systems: A 12 point ROS was reviewed with the pertinent positive and negatives noted in the HPI. Social History Smoking Status Never smoker Physical Exam: General: HEENT: Cardio: Respiratory: Abdominal: Genital/Urinary: Extremities: Neurological: Assessment: tender right upper quadrant, obese. Ultrasound shows contracted GB no stones, similar to CT scan report Drug screen positive Plan: Hida scan ordered.' if no visualization of GB will consider Lap cholecystectomy Signed, Susana Koehler [id number]
--- NOTE | 2017-05-12 15:26 | General Progress Note ---
Subjective - Review of Systems Service Date: 05/12/17 Subjective: HIDA scan normal will not need GB surgery Objective - Results Result Diagrams: 05/11/17 09:05/11/17 09: Recent Labs: Laboratory Last Values WBC 6.8 Th/cmm (4.8-10.8) 05/11/17 09: RBC 4.47 Mil/cmm (4.30-5.70) 05/11/17: Hgb 13.4 gm/dL (13.2-17.3) 05/11/17: Hct 40.3 % (39.0-49.0) 05/11/17: MCV 90.2 fl (80-99) 05/11/17: MCH 29.9 pg (26.0-30.0) 05/11/17 09: MCHC Differential 33.2 pg (28.0-36.0) 05/11/17: RDW 16.4 % (11.5-20.0) 05/11/17: Plt Count 207 Th/cmm (150-400) 05/11/17: MPV 8.8 fl 05/11/17 09: Neutrophils % 61.4 % (40.0-80.0) 05/11/17: Lymphocytes % 29.1 % (20.0-50.0) 05/11/17: Monocytes % 8.2 % (2.0-10.0) 05/11/17: Eosinophils % 1.2 % (0.0-5.0) 05/11/17: Basophils % 0.1 % (0.0-2.0) 05/11/17: PT 12.2 SECONDS (9.5-11.5) H 05/11/17: INR 1.16 (0.5-1.4) 05/11/17 09: PTT (Actin FS) 28.1 SECONDS (26.0-38.0) 05/11/17 09: Sodium 135 mEq/L (136-145) L 05/11/17 09: Potassium 3.6 mEq/L (3.5-5.1) 05/11/17 09: Chloride 108 mEq/L (98-107) H 05/11/17 09:27 Carbon Dioxide 22.1 mEq/L (21.0-31.0) 05/11/17 09:27 Anion Gap 8.5 (7.0-16.0) 05/11/17 09:27 BUN 24 mg/dL (7-25) 05/11/17 09:27 Creatinine 0.9 mg/dL (0.7-1.3) 05/11/17 09:27 Est GFR ( Amer) > 60.0 ml/min (>90) 05/11/17 09:27 Est GFR (Non-Af Amer) > 60.0 ml/min 05/11/17 09:27 BUN/Creatinine Ratio 26.7 05/11/17 09:27 Glucose 119 mg/dL (70-105) H 05/11/17 09:27 Whole Bld Lactic Acid 5.00 mmol/L (0.60-1.99) H* 05/12/17 09:50 Calcium 8.4 mg/dL (8.6-10.3) L 05/11/17 09:27 Total Bilirubin 1.3 mg/dL (0.3-1.0) H 05/11/17 09:27 AST 123 U/L (13-39) H 05/11/17 09:27 ALT 240 U/L (7-52) H 05/11/17 09:27 Alkaline Phosphatase 84 U/L (34-104) 05/11/17 09:27 Troponin I 0.03 ng/mL (0.01-0.05) 05/11/17 09:27 B-Natriuretic Peptide 927.0 pg/mL (5.0-100.0) H 05/11/17 09:27 Total Protein 6.5 gm/dL (6.0-8.3) 05/11/17 09:27 Albumin 3.1 gm/dL (4.2-5.5) L 05/11/17 09:27 Globulin 3.4 gm/dL 05/11/17 09:27 Albumin/Globulin Ratio 0.9 (1.0-1.8) L 05/11/17 09:27 Lipase 88 U/L (11-82) H 05/11/17 09:27 Urine Source CLEAN C 05/11/17 10:00 Urine Color YELLOW 05/11/17 10:00 Urine Clarity CLOUDY (CLEAR) 05/11/17 10:00 Urine pH 6.0 05/11/17 10:00 Ur Specific [place] 1.020 (1.005-1.030) 05/11/17 10:00 Urine Protein 30 mg/dL (NEGATIVE) H 05/11/17 10:00 Urine Glucose (UA) NEGATIVE mg/dL (NEGATIVE) 05/11/17 10:00 Urine Ketones NEGATIVE mg/dL (NEGATIVE) 05/11/17 10:00 Urine Blood NEGATIVE (NEGATIVE) 05/11/17 10:00 Urine Nitrate NEGATIVE (NEGATIVE) 05/11/17 10:00 Urine Bilirubin NEGATIVE (NEGATIVE) 05/11/17 10:00 Urine Urobilinogen 2.0 E.U./dL (0.2 - 1.0) 05/11/17 10:00 Ur Leukocyte Esterase NEGATIVE (NEGATIVE) 05/11/17 10:00 Urine RBC NONE SEEN /hpf (0-5) 05/11/17 10:00 Urine WBC 0-2 /hpf (0-5) 05/11/17 10:00 Ur Epithelial Cells OCCASIONAL /lpf (FEW) 05/11/17 10:00 Amorphous Sediment MANY URATES (NONE SEEN) 05/11/17 10:00 Urine Bacteria MANY /hpf (NONE SEEN) 05/11/17 10:00 Digoxin < 0.2 ng/ml (0.8-2.0) L 05/11/17 09:27 Urine Opiates Screen POSITIVE (NEGATIVE) H 05/11/17 10:00 Urine Methadone Screen NEGATIVE (NEGATIVE) 05/11/17 10:00 Ur Barbiturates Screen NEGATIVE (NEGATIVE) 05/11/17 10:00 Ur Tricyclics Screen NEGATIVE (NEGATIVE) 05/11/17 10:00 Ur Phencyclidine Scrn NEGATIVE (NEGATIVE) 05/11/17 10:00 Amphetamines Screen NEGATIVE (NEGATIVE) 05/11/17 10:00 U Methamphetamines Scrn NEGATIVE (NEGATIVE) 05/11/17 10:00 U Benzodiazepines Scrn NEGATIVE (NEGATIVE) 05/11/17 10:00 U Cocaine Metab Screen NEGATIVE (NEGATIVE) 05/11/17 10:00 U Cannabinoids Screen POSITIVE (NEGATIVE) H 05/11/17 10:00 - Physical Exam Vitals and I&O: Vital Signs Temp 96.6 F 05/12/17 09:40 Pulse 62 05/12/17 09:40 Resp 19 05/12/17 09:40 BP 112/75 05/12/17 09:40 Pulse Ox 99 05/12/17 09:40 Intake & Output 05/11/17 05/12/17 05/12/17 18:59 06:59 18:59 Intake Total 300 270 150 Balance 300 270 150 Weight (lbs) 97.069 kg 97.069 kg Intake: Intake, IV Amount 150 150 Piperacillin Sodium/ 50 50 Tazobact 3.375 gm In Sodium Chloride 0.9% 50 ml @ 100 mls/hr IV Q6H [facility] Rx#:[id number] metroNIDAZOLE 500mg/NS 100 100 100mL 500 mg In 100 ml @ 100 mls/hr IV Q8HR [facility] Rx #:[id number] Oral 300 120 Other: # Voids 1 3 Active Medications: Current Medications Enalapril Maleate (Vasotec) 20 mg PO DAILY [facility] Stop: 07/11/17 08:59 Last Admin: 05/12/17 08:41 Dose: 20 mg Enoxaparin Sodium (Lovenox) 40 mg SUBQ DAILY [facility] Stop: 07/11/17 08:59 Last Admin: 05/12/17 09:11 Dose: 40 mg Hydromorphone HCl (Dilaudid) 1 mg IVP Q4H PRN PRN Reason: pain Stop: 07/10/17 14:41 Last Admin: 05/12/17 15:04 Dose: 1 mg Potassium Chloride/Dextrose/Sod Cl (D5-0.45ns W/20 Meq Kcl) 1,000 mls @ 100 mls /hr IV .Q10H [facility] Stop: 07/10/17 14:41 Last Admin: 05/11/17 16:20 Dose: 100 mls/hr Metronidazole (Flagyl) 500 mg in 100 mls @ 100 mls/hr IV Q8HR [facility] Stop: 07/10/17 20:59 Last Admin: 05/12/17 15:08 Dose: 100 mls/hr Piperacillin Sod/Tazobactam (Sod 3.375 gm/ Sodium Chloride) 50 mls @ 100 mls/ hr IV Q6H [facility] Stop: 07/10/17 21:59 Last Admin: 05/12/17 12:02 Dose: 100 mls/hr Ketorolac Tromethamine (Toradol) 30 mg IVP Q6H PRN PRN Reason: Severe Pain Stop: 07/10/17 16:06 Last Admin: 05/11/17 16:18 Dose: 30 mg Metoprolol Succinate (Toprol Xl) 50 mg PO BID [facility] Stop: 07/11/17 08:59 Last Admin: 05/12/17 08:41 Dose: 50 mg Metoprolol Tartrate (Lopressor) 50 mg PO BID [facility] Stop: 07/10/17 16:59 Last Admin: 05/12/17 09:10 Dose: Not Given Ondansetron HCl (Zofran) 4 mg IV Q4H PRN PRN Reason: nausea and vomiting Stop: 07/10/17 14:41 Pantoprazole Sodium (Protonix) 40 mg PO DAILY [facility] Stop: 07/11/17 08:59 Last Admin: 05/12/17 08:41 Dose: 40 mg Rivaroxaban (Xarelto) 20 mg PO HS [facility] Stop: 07/11/17 20:59 Spironolactone (Aldactone) 25 mg PO DAILY [facility] Stop: 07/11/17 08:59 Last Admin: 05/12/17 08:41 Dose: 25 mg
--- NOTE | 2017-05-12 15:27 | General Progress Note ---
Subjective - Review of Systems Subjective: HIDA scan normal will not need GB surgery Objective - Results Result Diagrams: 05/11/17 09:27 05/11/17 09:27 Recent Labs: Laboratory Last Values WBC 6.8 Th/cmm (4.8-10.8) 05/11/17 09:27 RBC 4.47 Mil/cmm (4.30-5.70) 05/11/17 09:27 Hgb 13.4 gm/dL (13.2-17.3) 05/11/17 09:27 Hct 40.3 % (39.0-49.0) 05/11/17 09:27 MCV 90.2 fl (80-99) 05/11/17 09:27 MCH 29.9 pg (26.0-30.0) 05/11/17 09: MCHC Differential 33.2 pg (28.0-36.0) 05/11/17 09: RDW 16.4 % (11.5-20.0) 05/11/17 09: Plt Count 207 Th/cmm (150-400) 05/11/17 09:27 MPV 8.8 fl 05/11/17 09:27 Neutrophils % 61.4 % (40.0-80.0) 05/11/17 09:27 Lymphocytes % 29.1 % (20.0-50.0) 05/11/17 09:27 Monocytes % 8.2 % (2.0-10.0) 05/11/17 09:27 Eosinophils % 1.2 % (0.0-5.0) 05/11/17 09:27 Basophils % 0.1 % (0.0-2.0) 05/11/17 09:27 PT 12.2 SECONDS (9.5-11.5) H 05/11/17 09:27 INR 1.16 (0.5-1.4) 05/11/17 09:27 PTT (Actin FS) 28.1 SECONDS (26.0-38.0) 05/11/17 09:27 Sodium 135 mEq/L (136-145) L 05/11/17 09:27 Potassium 3.6 mEq/L (3.5-5.1) 05/11/17 09:27 Chloride 108 mEq/L (98-107) H 05/11/17 09:27 Carbon Dioxide 22.1 mEq/L (21.0-31.0) 05/11/17 09:27 Anion Gap 8.5 (7.0-16.0) 05/11/17 09:27 BUN 24 mg/dL (7-25) 05/11/17 09:27 Creatinine 0.9 mg/dL (0.7-1.3) 05/11/17 09:27 Est GFR ( Amer) > 60.0 ml/min (>90) 05/11/17 09:27 Est GFR (Non-Af Amer) > 60.0 ml/min 05/11/17 09:27 BUN/Creatinine Ratio 26.7 05/11/17 09:27 Glucose 119 mg/dL (70-105) H 05/11/17 09:27 Whole Bld Lactic Acid 5.00 mmol/L (0.60-1.99) H* 05/12/17 09:50 Calcium 8.4 mg/dL (8.6-10.3) L 05/11/17 09:27 Total Bilirubin 1.3 mg/dL (0.3-1.0) H 05/11/17 09:27 AST 123 U/L (13-39) H 05/11/17 09:27 ALT 240 U/L (7-52) H 05/11/17 09:27 Alkaline Phosphatase 84 U/L (34-104) 05/11/17 09:27 Troponin I 0.03 ng/mL (0.01-0.05) 05/11/17 09:27 B-Natriuretic Peptide 927.0 pg/mL (5.0-100.0) H 05/11/17 09:27 Total Protein 6.5 gm/dL (6.0-8.3) 05/11/17 09:27 Albumin 3.1 gm/dL (4.2-5.5) L 05/11/17 09:27 Globulin 3.4 gm/dL 05/11/17 09:27 Albumin/Globulin Ratio 0.9 (1.0-1.8) L 05/11/17 09:27 Lipase 88 U/L (11-82) H 05/11/17 09:27 Urine Source CLEAN C 05/11/17 10:00 Urine Color YELLOW 05/11/17 10:00 Urine Clarity CLOUDY (CLEAR) 05/11/17 10:00 Urine pH 6.0 05/11/17 10:00 Ur Specific [place] 1.020 (1.005-1.030) 05/11/17 10:00 Urine Protein 30 mg/dL (NEGATIVE) H 05/11/17 10:00 Urine Glucose (UA) NEGATIVE mg/dL (NEGATIVE) 05/11/17 10:00 Urine Ketones NEGATIVE mg/dL (NEGATIVE) 05/11/17 10:00 Urine Blood NEGATIVE (NEGATIVE) 05/11/17 10:00 Urine Nitrate NEGATIVE (NEGATIVE) 05/11/17 10:00 Urine Bilirubin NEGATIVE (NEGATIVE) 05/11/17 10:00 Urine Urobilinogen 2.0 E.U./dL (0.2 - 1.0) 05/11/17 10:00 Ur Leukocyte Esterase NEGATIVE (NEGATIVE) 05/11/17 10:00 Urine RBC NONE SEEN /hpf (0-5) 05/11/17 10:00 Urine WBC 0-2 /hpf (0-5) 05/11/17 10:00 Ur Epithelial Cells OCCASIONAL /lpf (FEW) 05/11/17 10:00 Amorphous Sediment MANY URATES (NONE SEEN) 05/11/17 10:00 Urine Bacteria MANY /hpf (NONE SEEN) 05/11/17 10:00 Digoxin < 0.2 ng/ml (0.8-2.0) L 05/11/17 09:27 Urine Opiates Screen POSITIVE (NEGATIVE) H 05/11/17 10:00 Urine Methadone Screen NEGATIVE (NEGATIVE) 05/11/17 10:00 Ur Barbiturates Screen NEGATIVE (NEGATIVE) 05/11/17 10:00 Ur Tricyclics Screen NEGATIVE (NEGATIVE) 05/11/17 10:00 Ur Phencyclidine Scrn NEGATIVE (NEGATIVE) 05/11/17 10:00 Amphetamines Screen NEGATIVE (NEGATIVE) 05/11/17 10:00 U Methamphetamines Scrn NEGATIVE (NEGATIVE) 05/11/17 10:00 U Benzodiazepines Scrn NEGATIVE (NEGATIVE) 05/11/17 10:00 U Cocaine Metab Screen NEGATIVE (NEGATIVE) 05/11/17 10:00 U Cannabinoids Screen POSITIVE (NEGATIVE) H 05/11/17 10:00 - Physical Exam Vitals and I&O: Vital Signs Temp 96.6 F 05/12/17 09:40 Pulse 62 05/12/17 09:40 Resp 19 05/12/17 09:40 BP 112/75 05/12/17 09:40 Pulse Ox 99 05/12/17 09:40 Intake & Output 05/11/17 05/12/17 05/12/17 18:59 06:59 18:59 Intake Total 300 270 150 Balance 300 270 150 Weight (lbs) 97.069 kg 97.069 kg Intake: Intake, IV Amount 150 150 Piperacillin Sodium/ 50 50 Tazobact 3.375 gm In Sodium Chloride 0.9% 50 ml @ 100 mls/hr IV Q6H [facility] Rx#:[id number] metroNIDAZOLE 500mg/NS 100 100 100mL 500 mg In 100 ml @ 100 mls/hr IV Q8HR [facility] Rx #:[id number] Oral 300 120 Other: # Voids 1 3 Active Medications: Current Medications Enalapril Maleate (Vasotec) 20 mg PO DAILY [facility] Stop: 07/11/17 08:59 Last Admin: 05/12/17 08:41 Dose: 20 mg Enoxaparin Sodium (Lovenox) 40 mg SUBQ DAILY [facility] Stop: 07/11/17 08:59 Last Admin: 05/12/17 09:11 Dose: 40 mg Hydromorphone HCl (Dilaudid) 1 mg IVP Q4H PRN PRN Reason: pain Stop: 07/10/17 14:41 Last Admin: 05/12/17 15:04 Dose: 1 mg Potassium Chloride/Dextrose/Sod Cl (D5-0.45ns W/20 Meq Kcl) 1,000 mls @ 100 mls /hr IV .Q10H [facility] Stop: 07/10/17 14:41 Last Admin: 05/11/17 16:20 Dose: 100 mls/hr Metronidazole (Flagyl) 500 mg in 100 mls @ 100 mls/hr IV Q8HR [facility] Stop: 07/10/17 20:59 Last Admin: 05/12/17 15:08 Dose: 100 mls/hr Piperacillin Sod/Tazobactam (Sod 3.375 gm/ Sodium Chloride) 50 mls @ 100 mls/ hr IV Q6H [facility] Stop: 07/10/17 21:59 Last Admin: 05/12/17 12:02 Dose: 100 mls/hr Ketorolac Tromethamine (Toradol) 30 mg IVP Q6H PRN PRN Reason: Severe Pain Stop: 07/10/17 16:06 Last Admin: 05/11/17 16:18 Dose: 30 mg Metoprolol Succinate (Toprol Xl) 50 mg PO BID [facility] Stop: 07/11/17 08:59 Last Admin: 05/12/17 08:41 Dose: 50 mg Metoprolol Tartrate (Lopressor) 50 mg PO BID [facility] Stop: 07/10/17 16:59 Last Admin: 05/12/17 09:10 Dose: Not Given Ondansetron HCl (Zofran) 4 mg IV Q4H PRN PRN Reason: nausea and vomiting Stop: 07/10/17 14:41 Pantoprazole Sodium (Protonix) 40 mg PO DAILY [facility] Stop: 07/11/17 08:59 Last Admin: 05/12/17 08:41 Dose: 40 mg Rivaroxaban (Xarelto) 20 mg PO HS [facility] Stop: 07/11/17 20:59 Spironolactone (Aldactone) 25 mg PO DAILY [facility] Stop: 07/11/17 08:59 Last Admin: 05/12/17 08:41 Dose: 25 mg
--- NOTE | 2017-05-12 19:01 | Consultation ---
Consult Note - Consult Note Service Date: 05/11/17 Consult Note: PHYSICIAN Consultation Note: Date of Admission: 05/11/17 Purpose of Consultation: Chief Complaint: History of Present Illness: Patient NIYA RIZO was admitted to location Telemetry with bloating x [address] shows choleithiasis hida ordered also ct + possible pyelo Past Medical History: htn afib Diagnoses OTHER PSYCHOACTIVE SUBSTANCE DEPENDENCE, UNCOMPLICATED (05/11/17) ESSENTIAL (PRIMARY) HYPERTENSION (05/11/17) UNSPECIFIED ATRIAL FIBRILLATION (05/11/17) HEART FAILURE, UNSPECIFIED (05/11/17) CALCULUS OF GB W ACUTE AND CHRONIC CHOLECYST W/O OBSTRUCTION (05/11/17) UNSPECIFIED ABDOMINAL PAIN (05/11/17) Allergies Allergy/AdvReac Type Severity Reaction Status Date / Time No Known Allergies Allergy Verified 05/11/17 09:02 Vital Signs Temp 96.6 F 05/12/17 09:40 Pulse 56 05/12/17 16:57 Resp 19 05/12/17 09:40 BP 90/59 05/12/17 16:57 Pulse Ox 99 05/12/17 09:40 Intake & Output 05/11/17 05/12/17 05/12/17 18:59 06:59 18:59 Intake Total 300 270 300 Balance 300 270 300 Weight (lbs) 97.069 kg 97.069 kg Intake: Intake, IV Amount 150 300 Piperacillin Sodium/ 50 100 Tazobact 3.375 gm In Sodium Chloride 0.9% 50 ml @ 100 mls/hr IV Q6H [facility] Rx#:[id number] metroNIDAZOLE 500mg/NS 100 200 100mL 500 mg In 100 ml @ 100 mls/hr IV Q8HR [facility] Rx #:[id number] Oral 300 120 Other: # Voids 1 3 Laboratory Results - last 24 hr 05/12/17 05/12/17 07:50 09:50 Whole Bld Lactic Acid 5.87 H* 5.00 H* Home Medication Medication Instructions Recorded Type Enalapril Maleate 20 mg PO DAILY 05/11/17 History Metoprolol Succinate [Toprol XL] 50 mg PO BID 05/11/17 History Ondansetron [Zofran ODT] 4 mg PO Q6H PRN 05/11/17 History Pantoprazole [Protonix] 40 mg PO DAILY 05/11/17 History Rivaroxaban [Xarelto] 20 mg PO HS 05/11/17 History Spironolactone 25 mg PO DAILY 05/11/17 History Current Medications Generic Name Dose Route Start Last Admin Trade Name Freq PRN Reason Stop Dose Admin Enalapril Maleate 20 mg 05/12/17 09:00 05/12/17 08:41 Vasotec PO 07/11/17 08:59 20 mg DAILY [facility] Administration Hydromorphone HCl 1 mg 05/11/17 14:42 05/12/17 15:04 Dilaudid IVP 07/10/17 14:41 1 mg Q4H PRN Administration pain Potassium Chloride/Dextrose/Sod Cl 1,000 mls @ 100 mls/hr 05/11/17 14:42 16:20 D5-0.45ns W/20 Meq Kcl IV 07/10/17 14:41 100 mls/hr .Q10H [facility] Administration Metronidazole 500 mg in 100 mls @ 100 mls/hr 05/11/17 21:00 05/12/17 16:08 Flagyl IV 07/10/17 20:59 Infused Q8HR [facility] Infusion Piperacillin Sod/Tazobactam 50 mls @ 100 mls/hr 05/11/17 22:00 05/12/17 17:40 Sod 3.375 gm/ Sodium Chloride IV 07/10/17 21:59 100 mls/hr Q6H [facility] Administration Ketorolac Tromethamine 30 mg 05/11/17 16:07 05/11/17 16:18 Toradol IVP 07/10/17 16:06 30 mg Q6H PRN Administration Severe Pain Metoprolol Succinate 50 mg 05/12/17 09:00 05/12/17 16:56 Toprol Xl PO 07/11/17 08:59 Not Given BID [facility] Metoprolol Tartrate 50 mg 05/11/17 17:00 05/12/17 16:57 Lopressor PO 07/10/17 16:59 Not Given BID [facility] Ondansetron HCl 4 mg 05/11/17 14:42 Zofran IV 07/10/17 14:41 Q4H PRN nausea and vomiting Pantoprazole Sodium 40 mg 05/12/17 09:00 05/12/17 08:41 Protonix PO 07/11/17 08:59 40 mg DAILY [facility] Administration Rivaroxaban 20 mg 05/12/17 21:00 Xarelto PO 07/11/17 20:59 HS [facility] Spironolactone 25 mg 05/12/17 09:00 05/12/17 08:41 Aldactone PO 07/11/17 08:59 25 mg DAILY [facility] Administration Review of Systems: A 12 point ROS was reviewed with the pertinent positive and negatives noted in the HPI. Social History Smoking Status Never smoker Physical Exam: General: HEENT: mild pale Cardio: s1s2 Respiratory: claer Abdominal: distended bs + Genital/Urinary: Extremities: no edwema Neurological: a focal Assessment: cholelithiasis pyelonephrtis Plan: Titus Arroyo Nilesh N. [id number]/12/[id number]
--- NOTE | 2017-05-12 20:00 | Internal Medicine Prog Note ---
Internal Medicine Subjective - Subjective Service Date: 05/12/17 Patient seen and examined:: with staff Patient is:: awake, in bed Patient Complaints of:: other (has abdominal pain) Per staff patient has:: no adverse event Internal Medicine Objective - Results Result Diagrams: 05/11/17 09:05/11/17 09: Recent Labs: Laboratory Last Values WBC 6.8 Th/cmm (4.8-10.8) 05/11/17: RBC 4.47 Mil/cmm (4.30-5.70) 05/11/17: Hgb 13.4 gm/dL (13.2-17.3) 05/11/17: Hct 40.3 % (39.0-49.0) 05/11/17: MCV 90.2 fl (80-99) 05/11/17: MCH 29.9 pg (26.0-30.0) 05/11/17: MCHC Differential 33.2 pg (28.0-36.0) 05/11/17: RDW 16.4 % (11.5-20.0) 05/11/17: Plt Count 207 Th/cmm (150-400) 05/11/17: MPV 8.8 fl 05/11/17: Neutrophils % 61.4 % (40.0-80.0) 05/11/17: Lymphocytes % 29.1 % (20.0-50.0) 05/11/17: Monocytes % 8.2 % (2.0-10.0) 05/11/17: Eosinophils % 1.2 % (0.0-5.0) 05/11/17: Basophils % 0.1 % (0.0-2.0) 05/11/17: PT 12.2 SECONDS (9.5-11.5) H 05/11/17: INR 1.16 (0.5-1.4) 05/11/17 09: PTT (Actin FS) 28.1 SECONDS (26.0-38.0) 05/11/17: Sodium 135 mEq/L (136-145) L 05/11/17:27 Potassium 3.6 mEq/L (3.5-5.1) 05/11/17 09:27 Chloride 108 mEq/L (98-107) H 05/11/17 09:27 Carbon Dioxide 22.1 mEq/L (21.0-31.0) 05/11/17 09:27 Anion Gap 8.5 (7.0-16.0) 05/11/17 09:27 BUN 24 mg/dL (7-25) 05/11/17 09: Creatinine 0.9 mg/dL (0.7-1.3) 05/11/17 09:27 Est GFR ( Amer) > 60.0 ml/min (>90) 05/11/17: Est GFR (Non-Af Amer) > 60.0 ml/min 05/11/17 09: BUN/Creatinine Ratio 26.7 05/11/17 09: Glucose 119 mg/dL (70-105) H 05/11/17 09:27 Whole Bld Lactic Acid 5.00 mmol/L (0.60-1.99) H* 05/12/17 09:50 Calcium 8.4 mg/dL (8.6-10.3) L 05/11/17 09:27 Total Bilirubin 1.3 mg/dL (0.3-1.0) H 05/11/17 09:27 AST 123 U/L (13-39) H 05/11/17 09:27 ALT 240 U/L (7-52) H 05/11/17 09:27 Alkaline Phosphatase 84 U/L (34-104) 05/11/17 09: Troponin I 0.03 ng/mL (0.01-0.05) 05/11/17 09:27 B-Natriuretic Peptide 927.0 pg/mL (5.0-100.0) H 05/11/17 09:27 Total Protein 6.5 gm/dL (6.0-8.3) 05/11/17 09:27 Albumin 3.1 gm/dL (4.2-5.5) L 05/11/17 09:27 Globulin 3.4 gm/dL 05/11/17 09:27 Albumin/Globulin Ratio 0.9 (1.0-1.8) L 05/11/17 09:27 Lipase 88 U/L (11-82) H 05/11/17 09:27 Urine Source CLEAN C 05/11/17 10:00 Urine Color YELLOW 05/11/17 10:00 Urine Clarity CLOUDY (CLEAR) 05/11/17 10:00 Urine pH 6.0 05/11/17 10:00 Ur Specific [place] 1.020 (1.005-1.030) 05/11/17 10:00 Urine Protein 30 mg/dL (NEGATIVE) H 05/11/17 10:00 Urine Glucose (UA) NEGATIVE mg/dL (NEGATIVE) 05/11/17 10:00 Urine Ketones NEGATIVE mg/dL (NEGATIVE) 05/11/17 10:00 Urine Blood NEGATIVE (NEGATIVE) 05/11/17 10:00 Urine Nitrate NEGATIVE (NEGATIVE) 05/11/17 10:00 Urine Bilirubin NEGATIVE (NEGATIVE) 05/11/17 10:00 Urine Urobilinogen 2.0 E.U./dL (0.2 - 1.0) 05/11/17 10:00 Ur Leukocyte Esterase NEGATIVE (NEGATIVE) 05/11/17 10:00 Urine RBC NONE SEEN /hpf (0-5) 05/11/17 10:00 Urine WBC 0-2 /hpf (0-5) 05/11/17 10:00 Ur Epithelial Cells OCCASIONAL /lpf (FEW) 05/11/17 10:00 Amorphous Sediment MANY URATES (NONE SEEN) 05/11/17 10:00 Urine Bacteria MANY /hpf (NONE SEEN) 05/11/17 10:00 Digoxin < 0.2 ng/ml (0.8-2.0) L 05/11/17 09:27 Urine Opiates Screen POSITIVE (NEGATIVE) H 05/11/17 10:00 Urine Methadone Screen NEGATIVE (NEGATIVE) 05/11/17 10:00 Ur Barbiturates Screen NEGATIVE (NEGATIVE) 05/11/17 10:00 Ur Tricyclics Screen NEGATIVE (NEGATIVE) 05/11/17 10:00 Ur Phencyclidine Scrn NEGATIVE (NEGATIVE) 05/11/17 10:00 Amphetamines Screen NEGATIVE (NEGATIVE) 05/11/17 10:00 U Methamphetamines Scrn NEGATIVE (NEGATIVE) 05/11/17 10:00 U Benzodiazepines Scrn NEGATIVE (NEGATIVE) 05/11/17 10:00 U Cocaine Metab Screen NEGATIVE (NEGATIVE) 05/11/17 10:00 U Cannabinoids Screen POSITIVE (NEGATIVE) H 05/11/17 10:00 - Physical Exam Vitals and I&O: Vital Signs Temp 96.6 F 05/12/17 09:40 Pulse 56 05/12/17 16:57 Resp 19 05/12/17 09:40 BP 90/59 05/12/17 16:57 Pulse Ox 99 05/12/17 09:40 Intake & Output 05/12/17 05/12/17 05/13/17 06:59 18:59 06:59 Intake Total 270 300 Balance 270 300 Weight (lbs) 97.069 kg Intake: Intake, IV Amount 150 300 Piperacillin Sodium/ 50 100 Tazobact 3.375 gm In Sodium Chloride 0.9% 50 ml @ 100 mls/hr IV Q6H [facility] Rx#:[id number] metroNIDAZOLE 500mg/NS 100 200 100mL 500 mg In 100 ml @ 100 mls/hr IV Q8HR [facility] Rx #:[id number] Oral 120 Other: # Voids 3 Active Medications: Current Medications Enalapril Maleate (Vasotec) 20 mg PO DAILY [facility] Stop: 07/11/17 08:59 Last Admin: 05/12/17 08:41 Dose: 20 mg Hydromorphone HCl (Dilaudid) 1 mg IVP Q4H PRN PRN Reason: pain Stop: 07/10/17 14:41 Last Admin: 05/12/17 15:04 Dose: 1 mg Potassium Chloride/Dextrose/Sod Cl (D5-0.45ns W/20 Meq Kcl) 1,000 mls @ 100 mls /hr IV .Q10H [facility] Stop: 07/10/17 14:41 Last Admin: 05/11/17 16:20 Dose: 100 mls/hr Metronidazole (Flagyl) 500 mg in 100 mls @ 100 mls/hr IV Q8HR [facility] Stop: 07/10/17 20:59 Last Infusion: 05/12/17 16:08 Dose: Infused Piperacillin Sod/Tazobactam (Sod 3.375 gm/ Sodium Chloride) 50 mls @ 100 mls/ hr IV Q6H [facility] Stop: 07/10/17 21:59 Last Admin: 05/12/17 17:40 Dose: 100 mls/hr Ketorolac Tromethamine (Toradol) 30 mg IVP Q6H PRN PRN Reason: Severe Pain Stop: 07/10/17 16:06 Last Admin: 05/11/17 16:18 Dose: 30 mg Metoprolol Succinate (Toprol Xl) 50 mg PO BID [facility] Stop: 07/11/17 08:59 Last Admin: 05/12/17 16:56 Dose: Not Given Metoprolol Tartrate (Lopressor) 50 mg PO BID [facility] Stop: 07/10/17 16:59 Last Admin: 05/12/17 16:57 Dose: Not Given Ondansetron HCl (Zofran) 4 mg IV Q4H PRN PRN Reason: nausea and vomiting Stop: 07/10/17 14:41 Pantoprazole Sodium (Protonix) 40 mg PO DAILY [facility] Stop: 07/11/17 08:59 Last Admin: 05/12/17 08:41 Dose: 40 mg Rivaroxaban (Xarelto) 20 mg PO HS [facility] Stop: 07/11/17 20:59 Spironolactone (Aldactone) 25 mg PO DAILY [facility] Stop: 07/11/17 08:59 Last Admin: 05/12/17 08:41 Dose: 25 mg General: weak, alert HEENT: NC/AT, PERRLA, EOMI, throat clear Neck: Supple, No JVD, + JVD Lungs: CTAB, no congested, no wheezing, no ronchi, no chest deformity present Cardiovascular: RRR, Normal S1, Normal S2, no without murmur Abdomen: soft, non-distended, positive bowel sound Extremities: clear, no edema, no pedal pulses, no cyanosis Neurological: alert Internal Medicine Assmt/Plan - Assessment Assessment: 1.CHOLELITHIASIS. 2.ABDOMINAL PAIN 3.CHF - Plan Plan: ADVANCE DIET TOLERATED.CBC ,CMP IN AM.
[2017-05-12] MEDS: D5-0.45NS w/20 mEq KCL 1,000 ML IV SCH (21:27)
[2017-05-13] MEDS: metroNIDAZOLE 500mg/NS 100mL 500 MG/100 ML BAG IV SCH ×3 (05:24→20:10)
[2017-05-13] MEDS: HYDROmorphone 1 mg/mL 1mL Syr IVP PRN (06:53)
[2017-05-13 07:15] LABS: HEMATOCRIT 41.4 % (39.0-49.0); HEMOGLOBIN 13.6 gm/dL (13.2-17.3); MEAN CELL VOLUME 90.9 fl (80-99); MEAN CORPUSCULAR HEMOGLOBIN 29.8 pg (26.0-30.0); MEAN CORPUSCULAR HGB CONC 32.8 pg (28.0-36.0); MEAN PLATELET VOLUME 10.7 fl; RED BLOOD COUNT 4.55 Mil/cmm (4.30-5.70); RED CELL DISTRIBUTION WIDTH 16.5 % (11.5-20.0)
[2017-05-13] MEDS ORDERED: Albuterol/Ipratropium Neb 3 ML AERS HHN PRN (07:26)
[2017-05-13 08:40] LABS: PLATELET COUNT NOT ABLE TO PERFORM Th/cmm (150-400); WHITE BLOOD COUNT 15.5 Th/cmm (4.8-10.8)
[2017-05-13 08:54] LABS: BAND NEUTROPHILE 1 % (0-10); BASOPHIL 1 % (0-3); EOSINOPHIL 1 % (0-5); METAMYELOCYTE 1 % (0-0); NEUTROPHILS 73 % (40-80); PLATELET ESTIMATE ADEQUATE (NORMAL); PLATELET MORPHOLOGY PLATELET CLUMPS SEEN (NORMAL); TOTAL CELLS COUNTED 100
[2017-05-13] MEDS: Magnesium Hydroxide (MOM) 30 mL UDC PO SCH (09:43)
[2017-05-13] MEDS: Pantoprazole 40 mg EC Tab PO SCH (09:44)
[2017-05-13 11:12] LABS: ALB/GLOB RATIO 1.1 (1.0-1.8); ANION GAP 11.6 (7.0-16.0); BILIRUBIN,TOTAL 5.5 mg/dL (0.3-1.0); BUN/CREATININE RATIO 16.3; CARBON DIOXIDE 20.4 mEq/L (21.0-31.0); CREATININE - SERUM 3.5 mg/dL (0.7-1.3)
--- NOTE | 2017-05-13 11:33 | Diagnostic Imaging Report ---
CHEST X-RAY: AP view INDICATION: Sepsis COMPARISON: Chest x-ray 05/11/2017 FINDINGS: Suboptimal lung volumes are noted. No focal consolidation or effusions. Borderline cardiomegaly is noted. The osseous structures are intact. IMPRESSION: Suboptimal lung volumes. No focal consolidation identified. Borderline cardiomegaly.
--- NOTE | 2017-05-13 12:50 | Cardiology ---
Cardiology Report - Cardiology Cardiology: Date of Service: 05/12/[address] jag perez M-MODE ECHOCARDIOLGRAM: Bilateral bowel normal left ventricular hypertrophy ejection fraction 10% left ventricle enlarged cardiomyopathy left atrium enlarged aortic root normal aortic leaflets normal CONCLUSION: Hypertrophy left ventricle cardiomyopathy ejection fraction 10% left atrium enlarged 2D ECHO: Long axis cardiomyopathy ejection fraction 10% left Atrium normal aortic root normal aortic leaflets normal left ventricle hypertrophy Short axis mitral while normal short axis aortic well normal Apical 4 chamber left ventricle hypertrophy cardiomyopathy ejection fraction 10 % left Atrium enlarged 4.6 cm right ventricle right atrium normal CONCLUSION: Cardiomyopathy ejection fraction 10% left ventricle hypertrophy and large left atrium DOPPLER: Trace mitral regurgitation S tricuspid regurgitation right ventricular systolic pressure 20 mmHg CONCLUSION: Hypertrophy left ventricle cardiomyopathy ejection fraction 10% left atrium enlarged mild mitral regurgitation mild tricuspid regurgitation
[2017-05-13] MEDS ORDERED: Hydrocodone/APAP 5mg/325mg Tab PO PRN (15:25)
--- NOTE | 2017-05-13 15:29 | Internal Medicine Prog Note ---
Internal Medicine Subjective - Subjective Service Date: 05/13/17 Patient seen and examined:: without staff Patient is:: awake, in bed Patient Complaints of:: other (has abdominal pain) Per staff patient has:: no adverse event Internal Medicine Objective - Results Result Diagrams: 05/13/17 06:36 05/13/17 10:48 Recent Labs: Laboratory Last Values WBC 15.5 Th/cmm (4.8-10.8) H D 05/13/17 06:36 RBC 4.55 Mil/cmm (4.30-5.70) 05/13/17 06:36 Hgb 13.6 gm/dL (13.2-17.3) 05/13/17 06:36 Hct 41.4 % (39.0-49.0) 05/13/17 06:36 MCV 90.9 fl (80-99) 05/13/17 06:36 MCH 29.8 pg (26.0-30.0) 05/13/17 06:36 MCHC Differential 32.8 pg (28.0-36.0) 05/13/17 06:36 RDW 16.5 % (11.5-20.0) 05/13/17 06:36 Plt Count NOT ABLE TO PERFORM Th/cmm (150-400) 05/13/17 06:36 MPV 10.7 fl 05/13/17 06:36 Neutrophils % 61.4 % (40.0-80.0) 05/11/17 09:27 Band Neutrophils % 1 % (0-10) 05/13/17 06:36 Lymphocytes % 29.1 % (20.0-50.0) 05/11/17 09:27 Monocytes % 8.2 % (2.0-10.0) 05/11/17 09:27 Eosinophils % 1.2 % (0.0-5.0) 05/11/17 09:27 Basophils % 0.1 % (0.0-2.0) 05/11/17 09:27 Neutrophils (Manual) 73 % (40-80) 05/13/17 06:36 Lymphocytes 19 % (20-50) L 05/13/17 06:36 Monocytes 4 % (2-10) 05/13/17 06:36 Eosinophils 1 % (0-5) 05/13/17 06:36 Basophils 1 % (0-3) 05/13/17 06:36 Metamyelocytes 1 % (0-0) H 05/13/17 06:36 Platelet Estimate ADEQUATE (NORMAL) 05/13/17 06:36 Platelet Morphology PLATELET CLUMPS SEEN (NORMAL) 05/13/17 06:36 RBC Morph Micro Appear NORMAL (NORMAL) 05/13/17 06:36 PT 12.2 SECONDS (9.5-11.5) H 05/11/17 09:27 INR 1.16 (0.5-1.4) 05/11/17 09:27 PTT (Actin FS) 28.1 SECONDS (26.0-38.0) 05/11/17 09:27 Sodium 125 mEq/L (136-145) L 05/13/17 10:48 Potassium 5.0 mEq/L (3.5-5.1) 05/13/17 10:48 Chloride 98 mEq/L (98-107) 05/13/17 10:48 Carbon Dioxide 20.4 mEq/L (21.0-31.0) L 05/13/17 10:48 Anion Gap 11.6 (7.0-16.0) 05/13/17 10:48 BUN 57 mg/dL (7-25) H 05/13/17 10:48 Creatinine 3.5 mg/dL (0.7-1.3) H 05/13/17 10:48 Est GFR ( Amer) 23.7 ml/min (>90) 05/13/17 10:48 Est GFR (Non-Af Amer) 19.6 ml/min 05/13/17 10:48 BUN/Creatinine Ratio 16.3 05/13/17 10:48 Glucose 137 mg/dL (70-105) H 05/13/17 10:48 Whole Bld Lactic Acid 2.95 mmol/L (0.60-1.99) H* 05/13/17 12:57 Calcium 8.0 mg/dL (8.6-10.3) L 05/13/17 10:48 Total Bilirubin 5.5 mg/dL (0.3-1.0) H 05/13/17 10:48 AST 6641 U/L (13-39) H 05/13/17 10:48 ALT 4515 U/L (7-52) H 05/13/17 10:48 Alkaline Phosphatase 88 U/L (34-104) 05/13/17 10:48 Troponin I 0.03 ng/mL (0.01-0.05) 05/11/17 09:27 B-Natriuretic Peptide 927.0 pg/mL (5.0-100.0) H 05/11/17 09:27 Total Protein 6.0 gm/dL (6.0-8.3) 05/13/17 10:48 Albumin 3.1 gm/dL (4.2-5.5) L 05/13/17 10:48 Globulin 2.9 gm/dL 05/13/17 10:48 Albumin/Globulin Ratio 1.1 (1.0-1.8) 05/13/17 10:48 Lipase 88 U/L (11-82) H 05/11/17 09:27 Urine Source CLEAN C 05/11/17 10:00 Urine Color YELLOW 05/11/17 10:00 Urine Clarity CLOUDY (CLEAR) 05/11/17 10:00 Urine pH 6.0 05/11/17 10:00 Ur Specific [place] 1.020 (1.005-1.030) 05/11/17 10:00 Urine Protein 30 mg/dL (NEGATIVE) H 05/11/17 10:00 Urine Glucose (UA) NEGATIVE mg/dL (NEGATIVE) 05/11/17 10:00 Urine Ketones NEGATIVE mg/dL (NEGATIVE) 05/11/17 10:00 Urine Blood NEGATIVE (NEGATIVE) 05/11/17 10:00 Urine Nitrate NEGATIVE (NEGATIVE) 05/11/17 10:00 Urine Bilirubin NEGATIVE (NEGATIVE) 05/11/17 10:00 Urine Urobilinogen 2.0 E.U./dL (0.2 - 1.0) 05/11/17 10:00 Ur Leukocyte Esterase NEGATIVE (NEGATIVE) 05/11/17 10:00 Urine RBC NONE SEEN /hpf (0-5) 05/11/17 10:00 Urine WBC 0-2 /hpf (0-5) 05/11/17 10:00 Ur Epithelial Cells OCCASIONAL /lpf (FEW) 05/11/17 10:00 Amorphous Sediment MANY URATES (NONE SEEN) 05/11/17 10:00 Urine Bacteria MANY /hpf (NONE SEEN) 05/11/17 10:00 Digoxin < 0.2 ng/ml (0.8-2.0) L 05/11/17 09:27 Urine Opiates Screen POSITIVE (NEGATIVE) H 05/11/17 10:00 Urine Methadone Screen NEGATIVE (NEGATIVE) 05/11/17 10:00 Ur Barbiturates Screen NEGATIVE (NEGATIVE) 05/11/17 10:00 Ur Tricyclics Screen NEGATIVE (NEGATIVE) 05/11/17 10:00 Ur Phencyclidine Scrn NEGATIVE (NEGATIVE) 05/11/17 10:00 Amphetamines Screen NEGATIVE (NEGATIVE) 05/11/17 10:00 U Methamphetamines Scrn NEGATIVE (NEGATIVE) 05/11/17 10:00 U Benzodiazepines Scrn NEGATIVE (NEGATIVE) 05/11/17 10:00 U Cocaine Metab Screen NEGATIVE (NEGATIVE) 05/11/17 10:00 U Cannabinoids Screen POSITIVE (NEGATIVE) H 05/11/17 10:00 - Physical Exam Vitals and I&O: Vital Signs Temp 97.2 F 05/13/17 04:54 Pulse 106 05/13/17 11:24 Resp 20 05/13/17 11:24 BP 133/87 05/13/17 09:44 Pulse Ox 98 05/13/17 11:24 Intake & Output 05/12/17 05/13/17 05/13/17 18:59 06:59 18:59 Intake Total 1950 300 Output Total 800 Balance 1150 300 Weight (lbs) 97.069 kg 97.069 kg Intake: Intake, IV Amount 350 300 Piperacillin Sodium/ 150 100 Tazobact 3.375 gm In Sodium Chloride 0.9% 50 ml @ 100 mls/hr IV Q6H [facility] Rx#:[id number] metroNIDAZOLE 500mg/NS 200 200 100mL 500 mg In 100 ml @ 100 mls/hr IV Q8HR [facility] Rx #:[id number] Oral 1600 Output: Urine 800 Active Medications: Current Medications Acetaminophen/Hydrocodone Bitart ([place] 5mg/325mg) 1 tab PO Q4H PRN PRN Reason: Abdominal Pain Stop: 07/12/17 15:24 Albuterol/Ipratropium (Duoneb Neb) 3 ml HHN Q4H PRN PRN Reason: Wheezing/SOB Stop: 07/12/17 07:25 Last Admin: 05/13/17 11:24 Dose: 3 ml Bisacodyl (Dulcolax 10 Mg Supp) 10 mg RC DAILY PRN PRN Reason: Constipation Stop: 07/12/17 07:18 Enalapril Maleate (Vasotec) 20 mg PO DAILY [facility] Stop: 07/11/17 08:59 Last Admin: 05/13/17 09:44 Dose: 20 mg Potassium Chloride/Dextrose/Sod Cl (D5-0.45ns W/20 Meq Kcl) 1,000 mls @ 100 mls /hr IV .Q10H [facility] Stop: 07/10/17 14:41 Last Admin: 05/12/17 21:27 Dose: 100 mls/hr Metronidazole (Flagyl) 500 mg in 100 mls @ 100 mls/hr IV Q8HR [facility] Stop: 07/10/17 20:59 Last Admin: 05/13/17 13:18 Dose: 100 mls/hr Piperacillin Sod/Tazobactam (Sod 3.375 gm/ Sodium Chloride) 50 mls @ 100 mls/ hr IV Q6H [facility] Stop: 07/10/17 21:59 Last Admin: 05/13/17 09:43 Dose: 100 mls/hr Ketorolac Tromethamine (Toradol) 30 mg IVP Q6H PRN PRN Reason: Severe Pain Stop: 07/10/17 16:06 Last Admin: 05/13/17 09:45 Dose: 30 mg Magnesium Hydroxide (Milk Of Magnesia) 30 ml PO DAILY [facility] Stop: 07/12/17 08:59 Last Admin: 05/13/17 09:43 Dose: 30 ml Metoprolol Succinate (Toprol Xl) 50 mg PO BID [facility] Stop: 07/11/17 08:59 Last Admin: 05/12/17 16:56 Dose: Not Given Metoprolol Tartrate (Lopressor) 50 mg PO BID [facility] Stop: 07/10/17 16:59 Last Admin: 05/13/17 09:44 Dose: 50 mg Ondansetron HCl (Zofran) 4 mg IV Q4H PRN PRN Reason: nausea and vomiting Stop: 07/10/17 14:41 Pantoprazole Sodium (Protonix) 40 mg PO DAILY [facility] Stop: 07/11/17 08:59 Last Admin: 05/13/17 09:44 Dose: 40 mg Rivaroxaban (Xarelto) 20 mg PO HS [facility] Stop: 07/11/17 20:59 Last Admin: 05/12/17 21:19 Dose: 20 mg Spironolactone (Aldactone) 25 mg PO DAILY [facility] Stop: 07/11/17 08:59 Last Admin: 05/13/17 09:43 Dose: 25 mg General: weak, alert HEENT: NC/AT, PERRLA, EOMI, throat clear Neck: Supple, No JVD, + JVD Lungs: CTAB, no congested, no wheezing, no ronchi, no chest deformity present Cardiovascular: RRR, Normal S1, Normal S2, no without murmur Abdomen: soft, non-distended, positive bowel sound Extremities: clear, no edema, no pedal pulses, no cyanosis Neurological: alert Internal Medicine Assmt/Plan - Assessment Assessment: 1.CHOLELITHIASIS. 2.ABDOMINAL PAIN 3.CHF 4.hyponatremia. - Plan Plan: ADVANCE DIET TOLERATED.CBC ,CMP IN AM.
[2017-05-13] MEDS: D5-0.45NS w/20 mEq KCL 1,000 ML IV SCH (16:41)
[2017-05-14] MEDS ORDERED: [UNRECOGNIZED DRUG - SUPPLY] TP ONE (09:15)
[2017-05-14] MEDS: Magnesium Hydroxide (MOM) 30 mL UDC PO SCH (09:37)
[2017-05-14] MEDS: Pantoprazole 40 mg EC Tab PO SCH (09:37)
--- NOTE | 2017-05-14 19:01 | Discharge Summary ---
DATE OF DISCHARGE: 05/14/2017 FINAL DIAGNOSES: 1. Acute biliary colicky pain. 2. Cholelithiasis. 3. Congestive heart failure. 4. Hyponatremia. 5. History of drug dependency. REVIEW OF HISTORY: The patient is a 51-year-old male with long history of drug dependency, CHF, cholelithiasis, presented to the Emergency Room with acute abdominal pain, evaluated by the ER physician and admitted to the hospital, and started on antibiotic, IV pain medication. Dr. Koehler was consulted on the case. HIDA scan was ordered during the course of hospitalization. HOSPITAL COURSE: During this hospitalization, the patient was seen and evaluated by Dr. Koehler and the HIDA scan was negative. On 05/13/2017, the patient was feeling better. No nausea, no vomiting, no abdominal pain. His diet was advanced to a low fat diet, tolerated very well. On 05/14/2017, the patient refused his blood workup and he pulled out his IV line. The patient feels well. No nausea, no vomiting. PHYSICAL EXAMINATION: ABDOMEN: Soft, bowel sounds positive. EXTREMITIES: No edema. DISPOSITION: The patient was discharged home to follow up with primary physician next week. CONDITION ON DISCHARGE: Stable. MEDICATIONS: Follow discharge reconciliation. PSYCHIATRIC# [id number]
== END 2017-05-14 19:00 | disposition home or self-care (01) ==
LOC: ER 08:55 → TELE 13:43
PROVIDERS: ADMIT Family Medicine; ATTEND Family Medicine
DX: K80.12 Calculus of gallbladder with acute and chronic cholecystitis without obstruction (principal); I50.23 Acute on chronic systolic (congestive) heart failure; I42.7 Cardiomyopathy due to drug and external agent; E87.1 Hypo-osmolality and hyponatremia; F11.20 Opioid dependence, uncomplicated; N12 Tubulo-interstitial nephritis, not specified as acute or chronic; I48.91 Unspecified atrial fibrillation; I11.0 Hypertensive heart disease with heart failure; K21.9 Gastro-esophageal reflux disease without esophagitis; T50.905A Adverse effect of unspecified drugs, medicaments and biological substances, initial encounter; Y92.89 Other specified places as the place of occurrence of the external cause; E66.9 Obesity, unspecified; Z87.891 Personal history of nicotine dependence; Z79.899 Other long term (current) drug therapy; Z68.34 Body mass index [BMI] 34.0-34.9, adult
CPT/HCPCS: 36415-UA; 71010-TC; 76705-TC; 78226-TC; 80053-TC; 80162-TC; 80307; 81001-TC; 83605; 83690-TC; 83880-TC; 84484-TC; 85007-TC; 85025-TC; 85027-TC; 85610-TC; 87086-90; 90784; 90799; 93005; 94640; 94760; 96375; 96376; A9537; J1170; J1650; J1885; J2405; J2543; J7030; Z7502; Z7610